=== PATIENT | female | born 1940 | race Caucasian/White ===

== ENCOUNTER → 2016-05-19 | Outpatient (CLI) | payer OTHER ==
[~2016-05-19] MED LIST: AMBIEN PO; ATIVAN PO; BACTRIM DS TABL1 TAB PO; CALTRATE PLUS T1 TAB PO; CENTRUM SILVER PO; EVISTA60 MG PO; HYDROCODON-ACE1 EAC4 PO; HYDROCODON-ACE1 EAC5 PO; KETOPROFEN200 MG PO; LAMISIL PO; LISINOPRIL PO; MOBIC PO; NEXIUM PO; PRILOSEC20 M1 PO; PROTONIX; RELAFEN PO; RELAFEN500 MG PO; VICODIN 5/500 T1 TAB PO; ZANAFLEX4 M1 PO
--- NOTE | ~2016-05-19 | BD1 ---
[facility] A Service of [facility] RADIOLOGY TEXT RESULTS PATIENT: AURORA MCKEON LOCATION: [facility] : 41 UNIT #: [id number] AGE: [address]: Telma Casarez MD SEX: F ORDER DR: [id number] [place] [id number] O MR#: [id number] Acc #: [id number] NAME: AURORA MCKEON : 1940 SEX: F STUDY DATE/TIME: 05/19/2016 10:57 UNIT: [facility] ROOM: STUDY DESCRIPTION: BD Dexa Bone Dens 1+ Site Attending Physician: Telma Casarez M.D. Referring Physician: Telma Casarez M.D. Ordering Physician: Telma Casarez M.D. Primary Care Physician: Telma Casarez M.D. MEDICAL IMAGING REPORT This report is preliminary unless electronic signature is present. EXAM DXA scan, 05/19/2016 HISTORY Status post menopause with no hormone replacement therapy. Osteopenia. Hypertension with blood pressure medication for 5 years. FINDINGS Bone mineral density in the lumbar spine from L1 through L4 is 1.933 g/cm2 which is 6.3 standard deviations above the mean when compared to the young adult reference population which is within the range of normal. This is 7.8 standard deviations above the mean when compared to the age-matched population. Compared with 03/07/2014 there has been an increase in bone mineral density in the lumbar spine of 4.6%. Bone mineral density in the left femoral neck was 0.891 g/cm2 which is 1.1 standard deviations below the mean when compared to the young adult reference population which is characteristic of osteopenia. This is 0.7 standard deviations above the mean when compared to the age-matched population. Compared with 03/07/2014 there has been an increase in bone mineral density in the left hip of 2.1%. Bone mineral density in the right femoral neck was 0.87 g/cm2 which is 1.2 standard deviations below the mean when compared to the young adult reference population which is characteristic of osteopenia. This is 0.6 standard deviations above the mean when compared to the age-matched population. Compared with 03/07/2014 there has been an increase in bone mineral density in the right hip of 3.9%. IMPRESSION Bone mineral density in the lumbar spine within the range of normal and within the hips bilaterally characteristic of osteopenia. Compared with 03/07/2014 there has been an increase in bone mineral density in the lumbar spine and the hips bilaterally. [facility] A Service of [facility] RADIOLOGY TEXT RESULTS PATIENT: AURORA MCKEON LOCATION: [facility] : 41 UNIT #: [id number] AGE: [address]: Telma Casarez MD SEX: F ORDER DR: Dictated by... Sergo Vera M.D. THIS IS AN ELECTRONICALLY VERIFIED REPORT Sergo Vera M.D. at 05/20/2016 4:18 PM LASHAWN/meenu TD: 05/20/2016 00:59 JOB #: [id number] MEDICAL IMAGING REPORT
--- NOTE | ~2016-05-19 | MY11 ---
[facility] A Service of [facility] RADIOLOGY TEXT RESULTS PATIENT: AURORA MCKEON LOCATION: [facility] : 42 UNIT #: [id number] AGE: [address]: Telma Casarez MD SEX: F ORDER DR: [id number] [place] [id number] P MR#: [id number] Acc #: [id number] NAME: AURORA MCKEON : 1940 SEX: F STUDY DATE/TIME: 05/19/2016 11:07 UNIT: [facility] ROOM: STUDY DESCRIPTION: MY Mammogram Screening Dig [place] Attending Physician: Telma Casarez M.D. Referring Physician: Telma Casarez M.D. Ordering Physician: Telma Casarez M.D. Primary Care Physician: Telma Casarez M.D. MEDICAL IMAGING REPORT This report is preliminary unless electronic signature is present. EXAM Screening mammogram, 05/19 INDICATION 76-year-old with no personal history but positive family history of breast cancer. No current complaints. FINDINGS Routine digital screening views of both breasts were obtained. Study is reviewed with an FDA-approved CAD device. Comparison is made with 03/07/2014, 02/22/2013. Breast parenchyma shows scattered fibroglandular densities. No new masses or suspicious microcalcifications are seen. Benign circumscribed ovoid nodule in the inferior left breast is stable. Benign calcifications in both breasts are stable. There is a small oil cyst now noted near the 12 o'clock anterior right breast. IMPRESSION Benign mammogram. Routine screen in one year is recommended. Patients over the age of 40 are entered into a reminder system with target due date for the next mammogram. A result letter will also be sent to the patient. BIRADS: 2 Benign Finding Dictated by... Juan Reeves Jr., M.D. THIS IS AN ELECTRONICALLY VERIFIED REPORT Juan Reeves Jr., M.D. at 05/19/2016 5:00 PM [facility] A Service of [facility] RADIOLOGY TEXT RESULTS PATIENT: AURORA MCKEON LOCATION: [facility] : 41 UNIT #: [id number] AGE: [address]: Telma Casarez MD SEX: F ORDER DR: Sara TD: 05/19/2016 12:43 JOB #: [id number] MEDICAL IMAGING REPORT
== END | disposition home or self-care (01) ==
LOC: SMAM 10:30
DX: Z12.31 Encounter for screening mammogram for malignant neoplasm of breast (principal); Z13.820 Encounter for screening for osteoporosis; Z78.0 Asymptomatic menopausal state; Z80.3 Family history of malignant neoplasm of breast
CPT/HCPCS: 77080; G0202

== ENCOUNTER → 2016-10-22 | Outpatient (CLI) | payer OTHER ==
[~2016-10-22] MED LIST changes: +COLESTID PO; +LISINOPRIL10 MG PO; +NABUMETONE PO; +OMEPRAZOLE20 M1 PO; +PRAVACHOL20 MG PO
--- NOTE | ~2016-10-22 | CR151 ---
[facility]. [facility] A Service of [facility] & [facility] RADIOLOGY TEXT RESULTS PATIENT: AURORA MCKEON LOCATION: [facility] : 41 UNIT #: [id number] AGE: [address]: Solo Interiano MD SEX: F ORDER DR: [id number] [place] [id number] O MR#: [id number] Acc #: [id number] NAME: AURORA MCKEON : 1940 SEX: F STUDY DATE/TIME: 10/22/2016 12:50 [facility] ROOM: STUDY DESCRIPTION: CR Hip Min 2 Views Rt Attending Physician: Solo Interiano M.D. Referring Physician: Solo Interiano M.D. Ordering Physician: Solo Interiano M.D. Primary Care Physician: Telma Casarez M.D. MEDICAL IMAGING REPORT This report is preliminary unless electronic signature is present. EXAM Right hip HISTORY Right hip pain for 9 years. FINDINGS An AP view of the pelvis and lateral view of the right hip were obtained. There is a small osteophyte formation from the femoral head. There may be minimal narrowing of the joint space. There is degenerative change to the lumbar spine. The SI joints are normal with no fracture. IMPRESSION 1. There is some definite osteophyte formation from the femoral head on the right side and I believe the right hip joint is slightly more narrow than the one on the left. 2. Lumbar spine degenerative changes. Dictated by... Dom Kiran M.D. THIS IS AN ELECTRONICALLY VERIFIED REPORT Dom Kiran M.D. at 10/23/2016 1:00 PM Yariel TD: 10/23/2016 08:16 JOB #: [id number] MEDICAL IMAGING REPORT Page 1 of 1
--- NOTE | ~2016-10-22 | CR150 ---
[facility]. [facility] A Service of [facility] & [facility] RADIOLOGY TEXT RESULTS PATIENT: AURORA MCKEON LOCATION: [facility] : 41 UNIT #: [id number] AGE: [address]: Solo Interiano MD SEX: F ORDER DR: [id number] [place] [id number] O MR#: [id number] Acc #: [id number] NAME: AURORA MCKEON : 1940 SEX: F STUDY DATE/TIME: 10/22/2016 12:50 UNIT: [facility] ROOM: STUDY DESCRIPTION: CR Hip Min 2 Views Lt Attending Physician: Solo Interiano M.D. Referring Physician: Solo Interiano M.D. Ordering Physician: Solo Interiano M.D. Primary Care Physician: Telma Casarez M.D. MEDICAL IMAGING REPORT This report is preliminary unless electronic signature is present. EXAM Left hip HISTORY Left hip pain for 9 years. FINDINGS AP and lateral views of the left hip were obtained. The joint space is normal in thickness. There is minimal spurring from the greater trochanter. There is no fracture. IMPRESSION Mild degenerative spurring from the greater trochanter. The hip joint appears normal in thickness. Dictated by... Dom Kiran M.D. THIS IS AN ELECTRONICALLY VERIFIED REPORT Dom Kiran M.D. at 10/23/2016 1:00 PM Yariel TD: 10/22/2016 17:53 JOB #: [id number] MEDICAL IMAGING REPORT Page 1 of 1
== END | disposition home or self-care (01) ==
LOC: SRAD 12:41
DX: M25.551 Pain in right hip (principal); M25.552 Pain in left hip; M76.9 Unspecified enthesopathy, lower limb, excluding foot; M25.751 Osteophyte, right hip; M47.896 Other spondylosis, lumbar region
CPT/HCPCS: 73502

== ENCOUNTER → 2016-12-02 | Day surgery (SDC) | payer OTHER ==
--- NOTE | ~2016-12-02 | OR ---
Unit #: [id number] #: [id number] Patient: AURORA MCKEON [id number] [address] [place], [place] [address] [id number] O MR#: [id number] NAME: AURORA MCKEON ROOM: Date of Procedure: 12/02/2016 Admission Date: 12/02/2016 Surgeon: Solo Interiano M.D. : 1940 Attending Physician: Solo Interiano M.D. Primary Care Physician: Telma Casarez M.D. OPERATIVE REPORT PREOPERATIVE DIAGNOSES Back pain, hip pain, degenerative joint disease of the hips. POSTOPERATIVE DIAGNOSES Back pain, hip pain, degenerative joint disease of the hips. PROCEDURE PERFORMED Bilateral hip arthrogram and therapeutic injection of corticosteroids into the hips with fluoroscopic guidance. INDICATIONS FOR PROCEDURE The patient is a 76-year-old female with back and hip pains. She has failed conservative treatment. Epidural steroids were helpful, but did not last. All of her symptom complex is consistent with possible hip pathology. X-ray showed [id number] degenerative change, so the plan is for trial of diagnostic and hopefully therapeutic intraarticular hip injection. She will pay attention how she feels today, how the local anesthetic is working, and how she does longer down the line with the effect of the corticosteroid. DESCRIPTION OF PROCEDURE The patient was placed in a supine position. Standard monitors were applied. Sterile prep of the lateral aspect of the right hip was performed. The skin was localized with 0.25% Marcaine. A 22-gauge Quincke point spinal needle was then advanced with fluoroscopic guidance into the superior aspect of the right hip joint. Position was confirmed with the use of radiographic contrast and fluoroscopy. Contrast seen to spread over the top of the joint. There was impingement in the medial border of the joint. After confirming proper positioning, a dose of 40 mg of Kenalog and 3 mL of 0.25% bupivacaine were deposited. The patient tolerated this part of the procedure well. The patient's left hip was then sterilely prepped laterally allowed to air dry. Again, the skin lateral to the left femoral head was localized with 1% lidocaine. A 22-gauge Quincke point needle was advanced with fluoroscopic guidance to bring the needle tip to within the edge of the left acetabular head. After confirming proper positioning of the joint with fluoroscopy and radiographic contrast, a dose of 40 mg of Kenalog and 3 mL of 0.25% bupivacaine were deposited. The patient tolerated the procedure otherwise well and was discharged to the recovery room in stable condition. Dictated by... Unit #: [id number] #: [id number] Patient: AURORA MCKEON Jose Laurent/sha TD: 12/02/2016 11:26 JOB #: [id number] OPERATIVE REPORT Page 1 of 1 X Solo Interiano MD X PROCEDURE OPERATIVE NOTE
== END | disposition home or self-care (01) ==
LOC: CCSC 08:23
DX: M16.0 Bilateral primary osteoarthritis of hip (principal); I10 Essential (primary) hypertension; K21.9 Gastro-esophageal reflux disease without esophagitis; Z88.0 Allergy status to penicillin; Z88.1 Allergy status to other antibiotic agents; Z88.8 Allergy status to other drugs, medicaments and biological substances; Z79.899 Other long term (current) drug therapy
CPT/HCPCS: J3301